=== PATIENT | male | born 1945 | race Two or more races ===

== ENCOUNTER 2020-07-05 18:11 | Inpatient (IN) | payer OTHER ==
[~2020-07-05] VITALS: Ht 162.6 cm; Wt 112.0 kg
[2020-07-05 20:51] LABS: Basophils # (auto) 0.1 10 ^3/uL (0-0.2); Basophils % (auto) 1.2 % (0.0-2.0); Eosinophils # (auto) 0.1 10 ^3/uL (0-0.8); Eosinophils % (auto) 1.3 % (0.0-7.0); Hematocrit 40.9 % (41.0-53.0); Hemoglobin 13.9 g/dL (13.5-17.5); Lymphocytes # (auto) 1.2 10 ^3/uL (0.4-5.4); Lymphocytes % (auto) 12.4 % (10.0-50.0); Mean Corpuscular Hemoglobin 29.3 pg (28.0-32.0); Mean Corpuscular Hgb Conc. 33.9 g/dL (32.0-36.0); Mean Corpuscular Volume 86.6 fL (80.0-100.0); Monocytes # (auto) 0.7 10 ^3/uL (0-1.3); Monocytes % (auto) 7.3 % (0.0-12.0); Neutrophils # (auto) 7.4 10 ^3/uL (1.6-8.6); Neutrophils % (auto) 77.8 % (37.0-80.0); Red Blood Cells 4.72 10^6/uL (4.5-5.90); Red Cell Distribution Width 13.8 % (11.8-14.3); White Blood Cell 9.5 10^3/uL (4.4-10.8)
[2020-07-05 21:06] LABS: Albumin 3.1 g/dL (3.4-5.0); Calcium 8.6 mg/dL (8.5-10.1); Magnesium 2.9 mg/dL (1.6-2.6); Potassium 4.3 mmol/L (3.5-5.1)
[2020-07-05 21:07] LABS: INR 0.93 (0.9-1.15)
[2020-07-05 21:16] LABS: BUN/Creatinine Ratio 15.8; Bilirubin, Total 0.8 mg/dL (0.2-1.0); Total Protein 6.9 g/dL (6.4-8.2)
[2020-07-05] MEDS ORDERED: ACETAMINOPHEN 325 MG TAB PO PRN (21:30)
[2020-07-05] MEDS ORDERED: DEXTROSE (50%) 50ML SYRG IV PRN (21:30)
[2020-07-05] MEDS ORDERED: ONDANSETRON HCL 4 MG/2 ML VIAL IV PRN (21:30)
[2020-07-05] MEDS ORDERED: HYDROcodone-ACET 5/325MG TAB PO PRN (21:30)
[2020-07-05] MEDS ORDERED: DONEPEZIL HYDROCHLORIDE 5 MG TAB PO SCH (22:00)
[2020-07-05] MEDS: InsuLIN REG 1unit/0.01ml Soln (100units/ml) SC SCH (22:00)
[2020-07-05] MEDS ORDERED: ATORVASTATIN 20 MG TAB PO SCH (22:00)
[2020-07-05] MEDS: ACCU-CHEK COMFORT CURVE STRIP VI SCH (22:20)
[2020-07-06 01:41] VITALS: BP 111/61
[2020-07-06 02:05] VITALS: BP 111/61
[2020-07-06] MEDS ORDERED: BUME1TAB3 PO (02:28)
[2020-07-06] MEDS ORDERED: FURO20TA3 PO (02:28)
[2020-07-06] MEDS ORDERED: DONE5TAB80 PO (02:28)
[2020-07-06] MEDS ORDERED: AMLO-489 PO (02:28)
[2020-07-06] MEDS ORDERED: LISI-716 PO (02:28)
[2020-07-06] MEDS ORDERED: TAMS0.4C36 PO (02:28)
[2020-07-06] MEDS ORDERED: ATOR40TA52 PO (02:28)
[2020-07-06] MEDS ORDERED: GLYB5TAB8 PO (02:28)
[2020-07-06] MEDS ORDERED: PERCOT PO (02:28)
[2020-07-06] MEDS ORDERED: HYDR10TA26 PO (02:28)
[2020-07-06 04:38] VITALS: BP 114/70
[2020-07-06] MEDS: BUMETANIDE 1 MG TAB PO SCH ×2 (05:57→17:28)
[2020-07-06] MEDS: ACCU-CHEK COMFORT CURVE STRIP VI SCH ×3 (06:18→17:28)
[2020-07-06] MEDS: InsuLIN REG 1unit/0.01ml Soln (100units/ml) SC SCH ×3 (06:19→17:00)
[2020-07-06 06:58] LABS: Basophils # (auto) 0.1 10 ^3/uL (0-0.2); Eosinophils # (auto) 0.2 10 ^3/uL (0-0.8); Eosinophils % (auto) 2.2 % (0.0-7.0); Hematocrit 41.4 % (41.0-53.0); Hemoglobin 14.2 g/dL (13.5-17.5); Lymphocytes # (auto) 1.8 10 ^3/uL (0.4-5.4); Lymphocytes % (auto) 19.3 % (10.0-50.0); Mean Corpuscular Hemoglobin 29.6 pg (28.0-32.0); Mean Corpuscular Hgb Conc. 34.4 g/dL (32.0-36.0); Monocytes # (auto) 0.7 10 ^3/uL (0-1.3); Monocytes % (auto) 7.1 % (0.0-12.0); Neutrophils # (auto) 6.5 10 ^3/uL (1.6-8.6); Neutrophils % (auto) 70.4 % (37.0-80.0); Nucleated Red Blood Cells % 0.1 %; Red Blood Cells 4.81 10^6/uL (4.5-5.90); Red Cell Distribution Width 14.1 % (11.8-14.3); White Blood Cell 9.3 10^3/uL (4.4-10.8)
[2020-07-06 07:14] LABS: Potassium 4.2 mmol/L (3.5-5.1)
[2020-07-06 07:22] LABS: Albumin 3.3 g/dL (3.4-5.0); Bilirubin, Total 1.2 mg/dL (0.2-1.0); Calcium 8.8 mg/dL (8.5-10.1); Total Protein 7.2 g/dL (6.4-8.2)
[2020-07-06 09:00] VITALS: BP 143/68
[2020-07-06 09:42] LABS: Urine Bacteria NONE SEEN /hpf (None Seen); Urine Blood Negative /uL (Negative); Urine Specific Gravity 1.011 (1.001-1.035); Urine WBC <1 /hpf (0 - 3)
[2020-07-06] MEDS ORDERED: PANTOPRAZOLE 40 MG TAB PO SCH (10:00)
[2020-07-06 12:48] VITALS: BP 122/50
[2020-07-06] MEDS ORDERED: OPTISON 3ml Vial for INJ IV ONE (14:49)
[2020-07-06] MEDS ORDERED: ALBU1.257 NEB (15:28)
[2020-07-06 17:00] VITALS: BP 148/63
[2020-07-06] MEDS ORDERED: TAMSULOSIN HYDROCHLORIDE 0.4 MG CAP PO SCH (18:00)
[2020-07-07] MEDS ORDERED: ASPirin 81 mg TAB PO SCH (10:00)
== END 2020-07-06 20:15 | disposition hospice, home (50) | DRG 292 ==
LOC: EDBD 18:11 → ER 18:16 → OVERFLOW 21:23 → EAST 22:44
PROVIDERS: ADMIT Nurse Practitioner; ATTEND Internal Medicine
PROC: 0W9B30Z Drainage of Left Pleural Cavity with Drainage Device, Percutaneous Approach (ICD-10-PCS; principal; 2020-07-06)
DX: I13.0 Hypertensive heart and chronic kidney disease with heart failure and stage 1 through stage 4 chronic kidney disease, or unspecified chronic kidney disease (principal); E44.0 Moderate protein-calorie malnutrition; Z68.41 Body mass index [BMI] 40.0-44.9, adult; J91.8 Pleural effusion in other conditions classified elsewhere; J98.11 Atelectasis; Z20.822 Contact with and (suspected) exposure to COVID-19; F03.90 Unspecified dementia, unspecified severity, without behavioral disturbance, psychotic disturbance, mood disturbance, and anxiety; E66.01 Morbid (severe) obesity due to excess calories; N40.0 Benign prostatic hyperplasia without lower urinary tract symptoms; Z51.5 Encounter for palliative care; E11.22 Type 2 diabetes mellitus with diabetic chronic kidney disease; N18.32 Chronic kidney disease, stage 3b; G89.29 Other chronic pain; M54.5 Low back pain; E78.5 Hyperlipidemia, unspecified; I25.10 Atherosclerotic heart disease of native coronary artery without angina pectoris; I50.9 Heart failure, unspecified; M50.30 Other cervical disc degeneration, unspecified cervical region; Z95.1 Presence of aortocoronary bypass graft; Z88.0 Allergy status to penicillin
CPT/HCPCS: 36415; 70450; 71250; 72125; 73620; 74176; 76604; 76942; 80053; 81001; 82728; 82962; 83735; 83880; 85025; 85610; 85730; 87040; 87426; 93005; 93306; G0378; J1815; Q9956